=== PATIENT | male | born 1970 | race Caucasian/White ===

== ENCOUNTER 2019-03-16 23:41 | Emergency (ER) | payer BC ==
[2019-03-17] MEDS ORDERED: NA CHLORIDE 0.9% 1,000 ML ONE (00:55)
[2019-03-17] MEDS ORDERED: ONDANSETRON 4 MG/2 ML VIAL ONE (00:55)
[2019-03-17] MEDS ORDERED: MORPHINE 4 MG/ML SYR ONE (00:55)
[2019-03-17 01:22] LABS: Absolute Lymphocytes (CBC) 1.4 K/uL (0.7-4.9); Basophils % 0.5 % (0-1.3); Hematocrit 41.8 % (39.6-49.0); Lymphocytes % 14.4 % (15.3-44.8); MPV 8.8 fL (7.6-11.3); RBC Red Blood Cell Count 4.49 M/uL (4.33-5.43)
[2019-03-17 01:34] LABS: Urine Blood NEGATIVE (NEG); Urine Glucose NEGATIVE (NEG); Urine Protein 1+ (NEG)
[2019-03-17 01:34] LABS: Albumin 3.4 g/dL (3.4-5.0); Bilirubin Direct 0.4 mg/dL (0-0.2); Bilirubin Total 1.4 mg/dL (0.2-1.0); Potassium 3.5 mmol/L (3.5-5.1); Protein, Total 6.7 g/dL (6.4-8.2)
--- NOTE | 2019-03-17 03:04 | EDPHYS ---
Physician Documentation [facility] Name: Franklin Arteaga Age: 49 yrs Sex: Male : 1970 Arrival Date: 03/16/2019 Time: 23:46 Bed 14 Private MD: ED Physician Ian Loja HPI: 03/17 01:48 This 49 yrs old Male presents to ER via Ambulatory with complaints of Left pm1 flank pain. 01:48 The patient complains of pain in the left mid back. The pain does not radiate. Onset: pm1 The symptoms/episode began/occurred 2 hours prior to arrival. Modifying factors: The symptoms are alleviated by nothing. the symptoms are aggravated by nothing. Associated signs and symptoms: Pertinent positives: diarrhea, nausea, upper abdominal pain, Pertinent negatives: dysuria, fever, vomiting. Severity of pain: in the emergency department the pain is unchanged. The patient has not experienced similar symptoms in the past. The patient has not recently seen a physician. Historical: - Allergies: 00:00 No Known Allergies; jb4 - Home Meds: 00:00 losartan oral oral [Active]; metoprolol succinate oral oral [Active]; stomach jb4 medication [Active]; alprazolam 0.5 mg Oral tab [Active]; - PMHx: 00:00 Depression; Diabetes - NIDDM; Hypertension; Atrial Fib; jb4 - PSHx: 00:00 right arm; jb4 - Immunization history:: Adult Immunizations up to date. - Social history:: Smoking status: Patient uses tobacco products, Patient uses alcohol. - Ebola Screening: : No symptoms or risks identified at this time. ROS: 01:48 Constitutional: Negative for fever, chills, and weight loss, Eyes: Negative for injury, pm1 pain, redness, and discharge, ENT: Negative for injury, pain, and discharge, Neck: Negative for injury, pain, and swelling, Cardiovascular: Negative for chest pain, palpitations, and edema, Respiratory: Negative for shortness of breath, cough, wheezing, and pleuritic chest pain. 01:48 : Negative for injury, bleeding, discharge, and swelling, MS/Extremity: Negative for injury and deformity, Skin: Negative for injury, rash, and discoloration, Neuro: Negative for headache, weakness, numbness, tingling, and seizure. 01:48 Abdomen/GI: Positive for abdominal pain, nausea, diarrhea, Negative for vomiting, constipation. 01:48 Back: Positive for flank pain, on the left. Exam: 01:48 Constitutional: This is a well developed, well nourished patient who is awake, alert, pm1 and in no acute distress. Head/Face: Normocephalic, atraumatic. Eyes: Pupils equal round and reactive to light, extra-ocular motions intact. Lids and lashes normal. Conjunctiva and sclera are non-icteric and not injected. Cornea within normal limits. Periorbital areas with no swelling, redness, or edema. ENT: Nares patent. No nasal discharge, no septal abnormalities noted. Tympanic membranes are normal and external auditory canals are clear. Oropharynx with no redness, swelling, or masses, exudates, or evidence of obstruction, uvula midline. Mucous membranes moist. Neck: Trachea midline, no thyromegaly or masses palpated, and no cervical lymphadenopathy. Supple, full range of motion without nuchal rigidity, or vertebral point tenderness. No Meningismus. Chest/axilla: Normal chest wall appearance and motion. Nontender with no deformity. No lesions are appreciated. Cardiovascular: Regular rate and rhythm with a normal S1 and S2. No gallops, murmurs, or rubs. Normal PMI, no JVD. No pulse deficits. Respiratory: Lungs have equal breath sounds bilaterally, clear to auscultation and percussion. No rales, rhonchi or wheezes noted. No increased work of breathing, no retractions or nasal flaring. Abdomen/GI: Soft, non-tender, with normal bowel sounds. No distension or tympany. No guarding or rebound. No evidence of tenderness throughout. Back: No spinal tenderness. No costovertebral tenderness. Full range of motion. Skin: Warm, dry with normal turgor. Normal color with no rashes, no lesions, and no evidence of cellulitis. MS/ Extremity: Pulses equal, no cyanosis. Neurovascular intact. Full, normal range of motion. 01:48 Neuro: Orientation: is normal, Motor: is normal, moves all fours. Vital Signs: 00:00 BP 154 / 99; Pulse 73; Resp 16; Temp 98.3(O); Pulse Ox 100% on R/A; Weight 117.93 kg jb4 (R); Height 5 ft. 11 in. (180.34 cm) (R); Pain 8/10; 00:30 BP 138 / 91; Pulse 67; Resp 16; Pulse Ox 100% on R/A; jb4 02:15 BP 126 / 86; Pulse 68; Resp 16; Pulse Ox 98% on R/A; jb4 03:15 BP 135 / 91; Pulse 56; Resp 16; Pulse Ox 96% on R/A; jb4 00:00 Body Mass Index 36.26 (117.93 kg, 180.34 cm) jb4 MDM: 00:03 Patient medically screened. pm1 01:51 Data reviewed: vital signs. Data interpreted: Pulse oximetry: on room air is 100 %. pm1 Interpretation: normal. 03:02 Counseling: I had a detailed discussion with the patient and/or guardian regarding: the pm1 historical points, exam findings, and any diagnostic results supporting the discharge/admit diagnosis, lab results, radiology results, the need for outpatient follow up, to return to the emergency department if symptoms worsen or persist or if there are any questions or concerns that arise at home. 03/17 00:08 Order name: Basic Metabolic Panel; Complete Time: :35 pm1 03/17 00:08 Order name: CBC with Diff; Complete Time: :35 pm1 03/17 00:08 Order name: Creatinine for Radiology; Complete Time: :35 pm1 03/17 00:08 Order name: Hepatic Function; Complete Time: :35 pm1 03/17 00:08 Order name: Lipase; Complete Time: :35 pm1 03/17 01:24 Order name: Urine Dipstick--Ancillary (enter results); Complete Time: 35 mw2 03/17 00:08 Order name: IV Saline Lock; Complete Time: 00:20 pm1 03/17 00:08 Order name: Labs collected and sent; Complete Time: 00:20 pm1 03/17 00:08 Order name: CT Abd/Pelvis - IV Contrast Only pm1 03/17 00:08 Order name: Urine Dipstick-Ancillary (obtain specimen); Complete Time: 01:24 pm1 Administered Medications: 01:04 Drug: NS 0.9% 1000 ml Route: IV; Rate: 1000 ml; Site: right antecubital; jb4 01:45 Follow up: Response: No adverse reaction; IV Status: Completed infusion; IV Intake: jb4 1000ml 01:05 Drug: Zofran 4 mg Route: IVP; Site: right antecubital; jb4 01:30 Follow up: Response: No adverse reaction; Nausea is decreased jb4 01:07 Drug: morphine 4 mg {Note: RASS score 0.} Route: IVP; Site: right antecubital; jb4 01:30 Follow up: Response: No adverse reaction; Pain is decreased; RASS: Alert and Calm (0) jb4 03:27 Drug: Zofran 4 mg Route: PO; jb4 03:42 Follow up: Response: No adverse reaction; Nausea is decreased jb4 03:41 Drug: Bentyl 20 mg Route: PO; jb4 03:41 Follow up: Response: Medication administered at discharge. jb4 Disposition: 07:36 Co-signature as Attending Physician, Ian Loja MD I agree with the assessment and tw4 plan of care. Disposition: 03/17/19 03:04 Discharged to Home. Impression: Unspecified abdominal pain, Low back pain, Diarrhea, unspecified. - Condition is Stable. - Discharge Instructions: Abdominal Pain, Adult, Back Pain, Adult, Diarrhea, Adult. - Prescriptions for Bentyl 20 mg Oral Tablet - take 1 tablet by ORAL route every 6 hours As needed; 20 tablet. Zofran 4 mg Oral Tablet - take 1 tablet by ORAL route every 12 hours As needed; 20 tablet. - Work release form, Medication Reconciliation Form, Thank You Letter, Antibiotic Education, Prescription Opioid Use form. - Follow up: Emergency Department; When: As needed; Reason: Worsening of condition. Follow up: Private Physician; When: 2 - 3 days; Reason: Recheck today's complaints, Continuance of care, Re-evaluation by your physician. - Problem is new. - Symptoms have improved. Signatures: Dispatcher [employer] EDMS Ady Hernandez, KEITH [employer]AR SALES ESTIMATOR pm1 Saji García, YOGESH RN Ian Uriostegui MD MD tw4 Corrections: (The following items were deleted from the chart) 03:46 03:04 03/17/2019 03:04 Discharged to Home. Impression: Unspecified abdominal painLow jb4 back pain; Diarrhea, unspecified. Condition is Stable. Forms are Medication Reconciliation Form, Thank You Letter, Antibiotic Education, Prescription Opioid Use. Follow up: Emergency Department; When: As needed; Reason: Worsening of condition. Follow up: Private Physician; When: 2 - 3 days; Reason: Recheck today's complaints, Continuance of care, Re-evaluation by your physician. Problem is new. Symptoms have improved. pm1
--- NOTE | 2019-03-17 03:04 | ER ---
Nurse's Notes [facility] Name: Franklin Arteaga Age: 49 yrs Sex: Male : 1970 Arrival Date: 03/16/2019 Time: 23:46 Bed 14 Private MD: Diagnosis: Low back pain;Unspecified abdominal pain;Diarrhea, unspecified Presentation: 03/17 00:00 Presenting complaint: Patient states: My back started hurting earlier about 2 hours jb4 ago, when I went to lay down it suddenly got worse. It radiates to my upper stomach. 00:00 Transition of care: patient was not received from another setting of care. Onset of jb4 symptoms was March 16, 2019. Risk Assessment: Do you want to hurt yourself or someone else? Patient reports no desire to harm self or others. Initial Sepsis Screen: Does the patient meet any 2 criteria? No. Patient's initial sepsis screen is negative. Does the patient have a suspected source of infection? No. Patient's initial sepsis screen is negative. Care prior to arrival: None. 00:00 Method Of Arrival: Ambulatory jb4 00:00 Acuity: SEVERO 3 jb4 Historical: - Allergies: 00:00 No Known Allergies; jb4 - Home Meds: 00:00 losartan oral oral [Active]; metoprolol succinate oral oral [Active]; stomach jb4 medication [Active]; alprazolam 0.5 mg Oral tab [Active]; - PMHx: 00:00 Depression; Diabetes - NIDDM; Hypertension; Atrial Fib; jb4 - PSHx: 00:00 right arm; jb4 - Immunization history:: Adult Immunizations up to date. - Social history:: Smoking status: Patient uses tobacco products, Patient uses alcohol. - Ebola Screening: : No symptoms or risks identified at this time. Screenin:00 Abuse screen: Denies threats or abuse. Nutritional screening: No deficits noted. jb4 Tuberculosis screening: No symptoms or risk factors identified. Fall Risk None identified. Assessment: 00:00 General: Appears in no apparent distress. uncomfortable, Behavior is calm, cooperative, jb4 appropriate for age. Pain: Complains of pain in left mid back Pain radiates to left upper quadrant Pain currently is 8 out of 10 on a pain scale. Quality of pain is described as stabbing. Neuro: Level of Consciousness is awake, alert, obeys commands, Oriented to person, place, time, situation. Cardiovascular: Patient's skin is warm and dry. Respiratory: Airway is patent Respiratory effort is even, unlabored, Respiratory pattern is regular, symmetrical. GI: Reports upper abdominal pain, nausea. : No signs and/or symptoms were reported regarding the genitourinary system. EENT: No signs and/or symptoms were reported regarding the EENT system. Derm: Skin is intact, Skin is pink, warm \T\ dry. Musculoskeletal: Circulation, motion, and sensation intact. Range of motion: intact in all extremities. 01:00 Reassessment: Patient appears in no apparent distress at this time. Patient and/or jb4 family updated on plan of care and expected duration. Pain level reassessed. Patient is alert, oriented x 3, equal unlabored respirations, skin warm/dry/pink. 02:00 Reassessment: Patient appears in no apparent distress at this time. Patient and/or jb4 family updated on plan of care and expected duration. Pain level reassessed. Patient is alert, oriented x 3, equal unlabored respirations, skin warm/dry/pink. Patient states feeling better. 03:00 Reassessment: Patient appears in no apparent distress at this time. Patient and/or jb4 family updated on plan of care and expected duration. Pain level reassessed. Patient is alert, oriented x 3, equal unlabored respirations, skin warm/dry/pink. Patient states feeling better. 03:44 Reassessment: Patient appears in no apparent distress at this time. Patient and/or jb4 family updated on plan of care and expected duration. Pain level reassessed. Patient is alert, oriented x 3, equal unlabored respirations, skin warm/dry/pink. Pt verbalized understanding of d/c and follow up instructions. Vital Signs: 00:00 BP 154 / 99; Pulse 73; Resp 16; Temp 98.3(O); Pulse Ox 100% on R/A; Weight 117.93 kg jb4 (R); Height 5 ft. 11 in. (180.34 cm) (R); Pain 8/10; 00:30 BP 138 / 91; Pulse 67; Resp 16; Pulse Ox 100% on R/A; jb4 02:15 BP 126 / 86; Pulse 68; Resp 16; Pulse Ox 98% on R/A; jb4 03:15 BP 135 / 91; Pulse 56; Resp 16; Pulse Ox 96% on R/A; jb4 00:00 Body Mass Index 36.26 (117.93 kg, 180.34 cm) jb4 ED Course: 03/16 23:46 Patient arrived in ED. cl3 23:56 Ady Hernandez NP is PHCP. pm1 23:56 Ian Loja MD is Attending Physician. pm1 12 00:00 Arm band placed on right wrist. jb4 00:00 Patient has correct armband on for positive identification. Placed in gown. Bed in low jb4 position. Call light in reach. Side rails up X 1. Pulse ox on. NIBP on. 00:07 Saji García, YOGESH is Primary Nurse. jb4 00:11 Triage completed. jb4 00:19 Inserted saline lock: 18 gauge in right antecubital area, using aseptic technique. mt Blood collected. 00:54 Radiology exam delayed due to lab results not completed at this time. (BUN/Creatinine). kw1 01:14 Radiology exam delayed due to lab results not completed at this time. (BUN/Creatinine). kw1 02:10 CT Abd/Pelvis - IV Contrast Only In Process Unspecified. EDMS 03:45 No provider procedures requiring assistance completed. IV discontinued, intact, jb4 bleeding controlled, No redness/swelling at site. Pressure dressing applied. Administered Medications: 01:04 Drug: NS 0.9% 1000 ml Route: IV; Rate: 1000 ml; Site: right antecubital; jb4 01:45 Follow up: Response: No adverse reaction; IV Status: Completed infusion; IV Intake: jb4 1000ml 01:05 Drug: Zofran 4 mg Route: IVP; Site: right antecubital; jb4 01:30 Follow up: Response: No adverse reaction; Nausea is decreased jb4 01:07 Drug: morphine 4 mg {Note: RASS score 0.} Route: IVP; Site: right antecubital; jb4 01:30 Follow up: Response: No adverse reaction; Pain is decreased; RASS: Alert and Calm (0) jb4 03:27 Drug: Zofran 4 mg Route: PO; jb4 03:42 Follow up: Response: No adverse reaction; Nausea is decreased jb4 03:41 Drug: Bentyl 20 mg Route: PO; jb4 03:41 Follow up: Response: Medication administered at discharge. jb4 Intake: 01:45 IV: 1000ml; Total: 1000ml. jb4 Outcome: 03:04 Discharge ordered by . pm1 03:45 Discharged to home ambulatory. jb4 03:45 Condition: stable 03:45 Discharge instructions given to patient, Instructed on discharge instructions, follow up and referral plans. medication usage, Demonstrated understanding of instructions, follow-up care, medications, Prescriptions given X 2. 03:46 Patient left the ED. jb4 Signatures: Dispatcher [employer] EDMS Ady Hernandez NP [employer] pm1 Saji García, RN RN jb4 Deena Naylor mt, Kimberly kw1 Brenda Avila cl3
[2019-03-17] MEDS ORDERED: ONDANSETRON 4 MG (ODT) TAB ONE (03:23)
[2019-03-17] MEDS ORDERED: DICYCLOMINE HCL 10 MG CAP ONE (03:35)
[2019-03-17 06:19] VITALS: TEMP 98.3
[2019-03-17 06:23] VITALS: BP 135/91; O2SAT 96
--- NOTE | 2019-03-17 10:51 | RAD REPORT ---
EXAM DESCRIPTION: CT Abdomen and Pelvis With Intravenous Contrast CLINICAL HISTORY: The patient is 49 years old and is Male; Flank pain;Abd pain TECHNIQUE: Axial computed tomography images of the abdomen and pelvis with intravenous contrast. S agittal and coronal reformatted images were created and reviewed. This CT exam was performed using one or more of the following dose reduction techniques: automated exposure control, adjustment of t he mA and/or kV according to patient size, and/or use of iterative reconstruction technique. COMPARISON: No relevant prior studies available. FINDINGS: LUNG BASES: Unremarkable. No mass. No consolidation. ABDOMEN: LIVER: There is a diffuse decrease in hepatic parenchymal density, consistent with fatty infiltr ation. GALLBLADDER AND BILE DUCTS: No calcified stones. No ductal dilation. PANCREAS: No ductal dilation. No mass. SPLEEN: Unremarkable. ADRENALS: Unremarkable. No mass. KIDNEYS AND URETERS: Unremarkable. The kidneys enhance symmetrically. No obstructing renal or ur eteral calculus is seen. No hydronephrosis or hydroureter. No perinephric fluid or stranding. STOMACH AND BOWEL: The stomach is decompressed. The small bowel is normal in caliber. Stool is p resent throughout the colon. Scattered colonic diverticula are noted without surrounding inflammation . There is no bowel obstruction. PELVIS: APPENDIX: The appendix is normal in caliber without surrounding inflammation. BLADDER: Unremarkable. No mass. REPRODUCTIVE: Unremarkable as visualized. ABDOMEN and PELVIS: INTRAPERITONEAL SPACE: Unremarkable. No free air. No significant fluid collection. BONES/JOINTS: Bilateral pars defects are present at L4 and L5 without evidence of anterolisthesi s. SOFT TISSUES: A small fat-containing umbilical hernia is present. VASCULATURE: Atherosclerosis of the vasculature is present. No abdominal aortic aneurysm. LYMPH NODES: Unremarkable. No enlarged lymph nodes. IMPRESSION: No acute findings on this contrasted CT of the abdomen and pelvis to explain the patient 's symptoms. Electronically signed by: Gracy Alba MD 03/17/2019 2:47 AM BUCKLE COVERER Due to temporary technical issues with the PACS/Fluency reporting system, reports are being signed by the in house radiologist as a courtesy to ensure prompt reporting. The interpreting radiologist is f ully responsible for the content of the report.
== END 2019-03-17 03:46 | disposition home or self-care (01) ==
LOC: ER 23:41
DX: R19.7 Diarrhea, unspecified (principal); M54.5 Low back pain; I10 Essential (primary) hypertension; I48.91 Unspecified atrial fibrillation; E11.9 Type 2 diabetes mellitus without complications; F32.9 Major depressive disorder, single episode, unspecified; Z72.0 Tobacco use
CPT/HCPCS: 96361; 85025; 80048; 36415; 80076; 81003; 83690; 74177; 96375; 96374; 99284; Q9967; J7030; J2405